=== PATIENT | female | born 1975 | race Caucasian/White ===

== ENCOUNTER 2017-07-09 13:30 | Emergency (ER) | payer BC ==
[~2017-07-09] VITALS: Ht 177.8 cm; Wt 99.8 kg
--- NOTE | 2017-07-09 14:40 | NUR ---
ACI WITH RX PROVIDED /VERBALZIED UNDERSTANDING. LEFT DEM IN STABLE CONDITION STEADY SROGN GAIT.
--- NOTE | 2017-07-09 14:43 | NUR ---
PT. VERBALIZED UNDERSTANDING OF AFTERCARE INSTRUCTIONS.Patient discharged to home in stable condition. Written and verbal after care instructions given. Patient verbalizes understanding of instruction.
[2017-07-09 14:49] VITALS: BP 135/70
== END 2017-07-09 14:49 | disposition home or self-care (01) ==
LOC: ER 13:40
DX: S06.0X0A Concussion without loss of consciousness, initial encounter (principal); Z88.2 Allergy status to sulfonamides; Z88.8 Allergy status to other drugs, medicaments and biological substances; W22.8XXA Striking against or struck by other objects, initial encounter; Y93.89 Activity, other specified; Y92.89 Other specified places as the place of occurrence of the external cause; Y99.8 Other external cause status
CPT/HCPCS: 99283; A4606; Z7610

== ENCOUNTER 2017-07-23 19:15 | Emergency (ER) | payer BC ==
[~2017-07-23] VITALS: Ht 177.8 cm; Wt 99.8 kg
--- NOTE | 2017-07-23 19:30 | NUR ---
PT AMBULATORY TO ER BED 6, PT BIB SELF C/O RIGHT SIDE HEAD PAIN FROM HITTING HER HEAD 2 WEEKS AGO. PT STATES HAVING NAUSEA, DENIES VOMITING. PT STATES WAS SEEN HERE 2 WEEKS AGO WHEN SHE HIT HER HEAD. 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 PT VSS/RESP EVEN UNLABORED/NAD NOTED/SKIN WARM AND DRY/AOX4. MD AT THE BEDSIDE FOR [facility]CARSON.
[2017-07-23] MEDS ORDERED: HYDROCODONE/APAP 5/325MG 1 EACH TABLET ONE (19:41)
[2017-07-23] MEDS ORDERED: ONDANSETRON 4 MG TAB.RAPDIS ONE (19:41)
--- NOTE | 2017-07-23 19:50 | NUR ---
URINE SPECIMEN OBTAINED AND SENT TO THE LAB.
[2017-07-23] MEDS ORDERED: HYDROCODONE/APAP 5/325MG 1 EACH TABLET PO ONE (20:00)
[2017-07-23] MEDS ORDERED: ONDANSETRON 4 MG TAB.RAPDIS SL ONE (20:00)
--- NOTE | 2017-07-23 20:09 | NUR ---
PT TO CT VIA WHEELCHAIR. VSS.
--- NOTE | 2017-07-23 20:19 | NUR ---
PT BACK FROM CT.
--- NOTE | 2017-07-23 21:19 | NUR ---
Patient discharged to home in stable condition. Written and verbal after care instructions given. Patient verbalizes understanding of instruction, pt instructed not to drive. Pt ambulatory with a steady gait.
[2017-07-23 21:20] VITALS: BP 131/69
== END 2017-07-23 21:20 | disposition home or self-care (01) ==
LOC: ER 19:16
DX: S06.0X0A Concussion without loss of consciousness, initial encounter (principal); J01.90 Acute sinusitis, unspecified; F32.9 Major depressive disorder, single episode, unspecified; Z88.2 Allergy status to sulfonamides; Z88.8 Allergy status to other drugs, medicaments and biological substances; W22.8XXA Striking against or struck by other objects, initial encounter; Y93.89 Activity, other specified; Y92.89 Other specified places as the place of occurrence of the external cause; Y99.8 Other external cause status
CPT/HCPCS: 70450; 84703; 99284; A4606; Q0162; Z7610

== ENCOUNTER 2021-12-27 15:03 | Emergency (ER) | payer MEDICAID, OTHER ==
[~2021-12-27] VITALS: Ht 177.8 cm; Wt 98.4 kg
--- NOTE | 2021-12-27 15:20 | NUR ---
BIB SELF C/O RUQ ABD PAIN +DIARRHEA, -N/V. DX WITH PANCREATITIS LAST SAT PER PT. AMBULATORY, AAOX4, PLACED ON BED
--- NOTE | 2021-12-27 15:27 | NUR ---
AT BED SIDE
[2021-12-27 16:00] LABS: BASOPHILS % (AUTO) 0.5 % (0.0-2.0); EOSINOPHILS % (AUTO) 1.2 % (0.0-6.0); HEMATOCRIT 41 % (33-45); HEMOGLOBIN 13.7 g/dL (11.5-14.8); LYMPHOCYTES # (AUTO) 2.7 K/uL (0.8-4.8); LYMPHOCYTES % (AUTO) 31.3 % (20.0-44.0); MEAN CORPUSCULAR HGB CONC 33 g/dl (31.0-36.0); MEAN CORPUSCULAR VOLUME 88 fL (82-100); MONOCYTES # (AUTO) 0.4 K/uL (0.1-1.30); MONOCYTES % (AUTO) 4.7 % (2.0-12.0); NEUTROPHILS # (AUTO) 5.4 K/uL (1.8-8.9); NEUTROPHILS % (AUTO) 62.3 % (43.0-81.0); PLATELET COUNT (AUTO) 368 K/uL (150-450); RED BLOOD CELL COUNT(AUTO) 4.71 MIL/uL (4.0-5.2); WHITE BLOOD COUNT (AUTO) 8.7 K/uL (4.3-11.0)
[2021-12-27] MEDS ORDERED: IV NS 0.9% 1,000 ML BAG IV ONE (16:00)
--- NOTE | 2021-12-27 16:00 | NUR ---
BLOOD DRAWN AND URINE SAMPLE SENT TO LAB.
[2021-12-27] MEDS ORDERED: methylPREDNISolone SOD SUCC 125 MG/2ML VIAL IV ONE (16:30)
[2021-12-27] MEDS ORDERED: FAMOTIDINE/PF INJ 20 MG/2 ML VIAL IV ONE (16:30)
[2021-12-27] MEDS ORDERED: diphenhydrAMINE HCL 50 MG/ML VIAL IV ONE (16:30)
[2021-12-27 16:39] LABS: ALBUMIN 3.8 g/dL (3.4-5.0); BILIRUBIN,DIRECT 0.1 mg/dL (0.0-0.2); BILIRUBIN,TOTAL 0.4 mg/dL (0.2-1.0); CALCIUM, SERUM 8.7 mg/dL (8.5-10.1); CREATININE 0.7 mg/dL (0.6-1.3); POTASSIUM 3.9 mmol/L (3.5-5.1); TOTAL PROTEIN, SERUM 7.7 g/dL (6.4-8.2)
[2021-12-27 16:47] LABS: BILIRUBIN,URINE NEGATIVE (NEGATIVE); COLOR,URINE YELLOW (YELLOW); LEUKOCYTE ESTERASE ,URINE NEGATIVE (NEGATIVE); NITRITE, URINE NEGATIVE (NEGATIVE); PROTEIN,URINE NEGATIVE (NEGATIVE); UGLUCOSE NEGATIVE (NEGATIVE); UROBILINOGEN,URINE 0.2 EU/dL (0.2)
[2021-12-27 17:06] LABS: BACTERIA,URINE Few /HPF (None Seen); SQUAMOUS EPITHELIAL CELL,UR Moderate /HPF (None Seen)
[2021-12-27] MEDS ORDERED: HYDR-4275 PO (17:33)
--- NOTE | 2021-12-27 18:39 | NUR ---
IV removed. Catheter intact and site benign. Pressure and 4x4 applied to site. No bleeding noted. Patient discharged to home in stable condition. Written and verbal after care instructions given. Patient verbalizes understanding of instruction.
[2021-12-27 18:40] VITALS: BP 131/72
== END 2021-12-27 18:41 | disposition home or self-care (01) ==
LOC: ER 15:03
DX: N20.0 Calculus of kidney (principal); Z88.8 Allergy status to other drugs, medicaments and biological substances; Z79.891 Long term (current) use of opiate analgesic
CPT/HCPCS: 36415; 74176; 80048; 80076; 81001; 83690; 84703; 85025; 96360; 99284; J7030

== ENCOUNTER 2022-03-30 03:26 | Emergency (ER) | payer OTHER ==
[~2022-03-30] VITALS: Ht 177.8 cm; Wt 97.5 kg
[~2022-03-30 03:26] MED LIST: HYDR-4275 PO
--- NOTE | 2022-03-30 03:49 | NUR ---
BIBS FOR C/O LOWER ABD AND LOWE BACK PAIN, FELT REALLY BACK LAST NIGHT. PT A/O X 4, RR EVEN, NO ACUTE DISTRESS NOTED. PT CONNECTED TO MONITORS, VSS.
--- NOTE | 2022-03-30 03:50 | NUR ---
URINE COLLECTED AND SENT TO LAB
[2022-03-30] MEDS ORDERED: KETOROLAC TROMETHAMINE INJ 30 MG/ML VIAL ONE (04:08)
[2022-03-30] MEDS ORDERED: ONDANSETRON HCL/PF 4 MG/2 ML VIAL ONE (04:08)
--- NOTE | 2022-03-30 04:20 | NUR ---
blood work collected sent to lab
[2022-03-30] MEDS ORDERED: KETOROLAC TROMETHAMINE INJ 30 MG/ML VIAL IV ONE (04:30)
[2022-03-30] MEDS ORDERED: ONDANSETRON HCL/PF 4 MG/2 ML VIAL IVP ONE (04:30)
[2022-03-30] MEDS ORDERED: IV NS 0.9% 500 ML BAG IV ONE (04:30)
--- NOTE | 2022-03-30 04:30 | NUR ---
US AT BEDSIDE
[2022-03-30 04:39] LABS: BILIRUBIN,URINE NEGATIVE (NEGATIVE); COLOR,URINE YELLOW (YELLOW); LEUKOCYTE ESTERASE ,URINE NEGATIVE (NEGATIVE); NITRITE, URINE NEGATIVE (NEGATIVE); PROTEIN,URINE 100 mg/dl (NEGATIVE); UGLUCOSE NEGATIVE (NEGATIVE); UROBILINOGEN,URINE 0.2 EU/dL (0.2)
[2022-03-30 05:01] LABS: RBC,URINE TOO NUMEROUS TO COUN /HPF (0-2)
[2022-03-30 05:02] LABS: BACTERIA,URINE Moderate /HPF (None Seen); MUCUS,URINE Few /LPF (None Seen); SQUAMOUS EPITHELIAL CELL,UR Few /HPF (None Seen)
--- NOTE | 2022-03-30 05:03 | NUR ---
PT RETURNED TO ER BED [address]
[2022-03-30 05:13] LABS: BASOPHILS % (AUTO) 0.3 % (0.0-2.0); EOSINOPHILS % (AUTO) 0.8 % (0.0-6.0); HEMATOCRIT 39 % (33-45); HEMOGLOBIN 12.7 g/dL (11.5-14.8); LYMPHOCYTES # (AUTO) 2.3 K/uL (0.8-4.8); LYMPHOCYTES % (AUTO) 15.2 % (20.0-44.0); MEAN CORPUSCULAR HGB CONC 33 g/dl (31.0-36.0); MEAN CORPUSCULAR VOLUME 88 fL (82-100); MONOCYTES # (AUTO) 0.8 K/uL (0.1-1.30); MONOCYTES % (AUTO) 5.3 % (2.0-12.0); NEUTROPHILS # (AUTO) 11.8 K/uL (1.8-8.9); NEUTROPHILS % (AUTO) 78.4 % (43.0-81.0); PLATELET COUNT (AUTO) 356 K/uL (150-450); RED BLOOD CELL COUNT(AUTO) 4.45 MIL/uL (4.0-5.2)
[2022-03-30 05:30] LABS: ALBUMIN 3.6 g/dL (3.4-5.0); BILIRUBIN,DIRECT 0.1 mg/dL (0.0-0.2); BILIRUBIN,TOTAL 0.2 mg/dL (0.2-1.0); CALCIUM, SERUM 9.1 mg/dL (8.5-10.1); CREATININE 0.9 mg/dL (0.6-1.3); POTASSIUM 4.1 mmol/L (3.5-5.1); TOTAL PROTEIN, SERUM 7.6 g/dL (6.4-8.2)
--- NOTE | 2022-03-30 07:20 | NUR ---
RECEIVED PT FROM [facility] RN PT IN BED AWAKE AND ALERT C/O PAIN BACK WATING FOR CT RESULT
[2022-03-30] MEDS ORDERED: NAPR-1192 PO (08:15)
[2022-03-30 08:20] VITALS: BP 131/84
--- NOTE | 2022-03-30 08:20 | NUR ---
IV removed. Catheter intact and site benign. Pressure and 4x4 applied to site. No bleeding noted.Patient discharged to home in stable condition. Written and verbal after care instructions given. Patient verbalizes understanding of instruction.
== END 2022-03-30 08:21 | disposition home or self-care (01) ==
LOC: ER 03:27
DX: R10.30 Lower abdominal pain, unspecified (principal); Z87.442 Personal history of urinary calculi; Z88.2 Allergy status to sulfonamides; Z88.8 Allergy status to other drugs, medicaments and biological substances; Z79.899 Other long term (current) drug therapy
CPT/HCPCS: 99284; 74176; 96374; 76856; 96361; 96375; 85025; 80048; 87086; 80076; 81001; 36415; 85730; J1885; J2405; J7040